=== PATIENT | male | born 1935 | race Caucasian/White ===

== ENCOUNTER 2017-06-25 10:20 | Day surgery (SDC) | payer MEDICARE, OTHER ==
[~2017-06-25] VITALS: Ht 182.9 cm; Wt 143.7 kg
[2017-06-25 11:07] LABS: HEMATOCRIT 42.8 % (42.0-52.0); HEMOGLOBIN 14.1 g/dl (13.5-18.0); MEAN CELL VOLUME 98 fl (80.0-100.0); MEAN CORPUSCULAR HEMOGLOBIN 32 pg (27.0-31.0); MEAN CORPUSCULAR HGB CONC 33 g/dl (33.0-37.0); MEAN PLATELET VOLUME 10.6 fl (7.4-10.4); PLATELET COUNT 114 K/mm3 (130-400); RED BLOOD COUNT 4.38 M/mm3 (4.20-5.60); REDCELL DISTRIBUTION WIDTH-CV 13.6 % (11.5-14.5); WHITE BLOOD COUNT 5.7 K/mm3 (4.8-10.8)
[2017-06-25 11:23] LABS: CALCIUM 9.1 mg/dL (8.4-10.2); CREATININE, serum 1.41 mg/dL (0.66-1.25); POTASSIUM 4.7 mmol/L (3.4-5.0)
[2017-06-25 11:35] VITALS: BP 146/73; PULSE 65; TEMP 98
[2017-06-25] MEDS ORDERED: CARDURA XL4 MG PO (11:45)
[2017-06-25] MEDS ORDERED: COUMADIN 77.5 MG/TAB PO (11:46)
[2017-06-25] MEDS ORDERED: PRINZIDE 12.5 M1 TA1 PO (11:47)
[2017-06-25] MEDS ORDERED: MULTAQ400 MG PO (11:47)
[2017-06-25 11:54] LABS: INR 7.9 (0.8-3.0); PROTHROMBIN TIME 95.7 SECONDS (9.7-12.8)
[2017-06-25 12:44] LABS: PROTHROMBIN TIME 97.3 SECONDS (9.7-12.8)
[2017-06-25 17:06] VITALS: BP 126/54; PULSE 79; TEMP 97.4
[2017-06-25 18:04] LABS: INR 7.7 (0.8-3.0); PROTHROMBIN TIME 92.4 SECONDS (9.7-12.8)
[2017-06-25 21:30] LABS: INR 3.9 (0.8-3.0)
[2017-06-25 21:35] VITALS: BP 102/44; PULSE 70; TEMP 97.9
[2017-06-25 21:38] LABS: PROTHROMBIN TIME 45.4 SECONDS (9.7-12.8)
[2017-06-25 23:48] VITALS: BP 113/41; PULSE 62; TEMP 98
[2017-06-26 04:43] VITALS: BP 107/40; PULSE 64; TEMP 98.4
[2017-06-26 06:19] LABS: HEMATOCRIT 40.3 % (42.0-52.0); HEMOGLOBIN 13.3 g/dl (13.5-18.0); MEAN CELL VOLUME 97 fl (80.0-100.0); MEAN CORPUSCULAR HEMOGLOBIN 32 pg (27.0-31.0); MEAN CORPUSCULAR HGB CONC 33 g/dl (33.0-37.0); MEAN PLATELET VOLUME 10.7 fl (7.4-10.4); PLATELET COUNT 109 K/mm3 (130-400); RED BLOOD COUNT 4.14 M/mm3 (4.20-5.60); REDCELL DISTRIBUTION WIDTH-CV 13.8 % (11.5-14.5)
[2017-06-26 06:28] LABS: ADJUSTED CALCIUM 8.9 mg/dL (8.4-10.2); ALBUMIN 3.6 gm/dL (3.5-5.0); BILIRUBIN,TOTAL 1.3 mg/dL (0.0-1.0); CALCIUM 8.6 mg/dL (8.4-10.2); CREATININE, serum 1.44 mg/dL (0.66-1.25); POTASSIUM 4.1 mmol/L (3.4-5.0); TOTAL PROTEIN 6.3 gm/dL (6.4-8.2)
[2017-06-26 06:37] LABS: INR 2.2 (0.8-3.0); PROTHROMBIN TIME 25.4 SECONDS (9.7-12.8)
[2017-06-26 07:48] VITALS: BP 128/42; PULSE 64; TEMP 98.2
[2017-06-26 09:45] VITALS: BP 137/82; PULSE 72
[2017-06-26 11:00] VITALS: BP 114/59; PULSE 66
[2017-06-26] MEDS ORDERED: COUMADIN 77.5 MG/TAB PO (11:49)
== END 2017-06-26 12:12 | disposition home or self-care (01) ==
LOC: EUO 10:20 → COL.CAR 10:30 → MEDICAL 15:48 → EUO 06-26 12:12
PROVIDERS: Internal Medicine Cardiovascular Disease
DX: I48.0 Paroxysmal atrial fibrillation (principal); E78.5 Hyperlipidemia, unspecified; I10 Essential (primary) hypertension; E66.9 Obesity, unspecified; Z68.41 Body mass index [BMI] 40.0-44.9, adult
CPT/HCPCS: OP; G9654; J0282; J2250; J2704; J3430; J7120